=== PATIENT | male | born 1995 | race Caucasian/White ===

== ENCOUNTER 2021-03-15 01:15 | Emergency (ER) | payer OTHER | END 2021-03-15 05:44 | disposition home or self-care (01) | LOC: FER 01:15 | DX: S43.402A Unspecified sprain of left shoulder joint, initial encounter (principal); S00.93XA Contusion of unspecified part of head, initial encounter; F17.290 Nicotine dependence, other tobacco product, uncomplicated; Z23 Encounter for immunization; Y04.2XXA Assault by strike against or bumped into by another person, initial encounter; Y92.89 Other specified places as the place of occurrence of the external cause | CPT/HCPCS: 70450; 90471; 90715 ==